=== PATIENT | female | born 1965 | race Caucasian/White ===

== ENCOUNTER 2018-12-08 09:55 | Emergency (ER) | payer OTHER ==
[~2018-12-08] VITALS: Ht 167.6 cm; Wt 142.9 kg
[~2018-12-08 09:55] MED LIST: ARTHRITIS PAIN650 MG PO
[2018-12-08] MEDS ORDERED: METFORMIN HCL500 MG PO (10:14)
[2018-12-08] MEDS ORDERED: IBUPROFEN200 M1 PO (10:15)
--- OUTSIDE RECORDS SUMMARY | 2018-12-08 11:10 | XMS ---
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 Care History Medical/Surgical 12/08/2018 [facility] - Patient is currently established with [facility]. If patient is seen in the ED during business hours. Please contact CHWs at [facility]. Care Recommendation: This patient has had 5 or more Emergency Department visits in the last 12 months.\T\nbsp; Patient requires education on the scope and purpose of the ED as an acute care provider not a Primary Care Provider and should not be utilized for chronic conditions.\T\nbsp; These are guidelines and the provider should exercise clinical judgment when providing care. E.D. VISIT COUNT (12 MO.) 1 [facility] TOTAL 1 NOTE: Visits indicate total known visits. ED/UCC VISIT TRACKING (12 MO.) 12/08/2018 09:[address] [facility] [place] TYPE: Emergency COMPLAINT: - VOMITING, NECK/BACK PAIN NON INJURY INPATIENT VISIT TRACKING (12 MO.) No inpatient visits to display in this time frame [id number]
[2018-12-08] MEDS ORDERED: HALOPERIDOL5 MG PO (14:21)
[2018-12-09] MEDS ORDERED: CLINDAMYCIN HC300 MG PO (07:45)
== END 2018-12-08 15:36 | disposition home or self-care (01) ==
LOC: ED 09:55
DX: R11.2 Nausea with vomiting, unspecified (principal); E11.9 Type 2 diabetes mellitus without complications; Z79.84 Long term (current) use of oral hypoglycemic drugs
CPT/HCPCS: 71045; 80053; 81001; 85025; 87502; 96361; 96374; 96375; 99283-25; J1200; J1630; J2765; J7030

== ENCOUNTER 2018-12-09 07:28 | Emergency (ER) | payer OTHER ==
[~2018-12-09] VITALS: Ht 167.6 cm; Wt 142.9 kg
[~2018-12-09 07:28] MED LIST changes: +HALOPERIDOL5 MG PO; +IBUPROFEN200 M1 PO; +METFORMIN HCL500 MG PO
--- OUTSIDE RECORDS SUMMARY | 2018-12-09 07:32 | XMS ---
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 Care History Medical/Surgical 12/08/2018 [facility] - Patient is currently established with [facility]. If patient is seen in the ED during business hours. Please contact CHWs at [facility]. Care Recommendation: This patient has had 5 [...] providing care. E.D. VISIT COUNT (12 MO.) 2 [facility] TOTAL 2 NOTE: Visits indicate total known visits. ED/UCC VISIT TRACKING (12 MO.) 12/09/2018 07:29 [facility] TYPE: Emergency COMPLAINT: - LEFT LEG PAIN, SWELLING, REDNESS NON INJURY 12/08/2018 09:55 [facility] TYPE: Emergency COMPLAINT: - VOMITING, NECK/BACK PAIN NON INJURY INPATIENT VISIT TRACKING (12 MO.) No inpatient visits to display in this time frame [email or web address]
[2018-12-09] MEDS ORDERED: CLINDAMYCIN HC300 MG PO (07:45)
== END 2018-12-09 08:30 | disposition home or self-care (01) ==
LOC: ED 07:28
DX: L03.116 Cellulitis of left lower limb (principal); E11.9 Type 2 diabetes mellitus without complications; Z88.1 Allergy status to other antibiotic agents; Z79.84 Long term (current) use of oral hypoglycemic drugs; Z79.899 Other long term (current) drug therapy
CPT/HCPCS: 96365; 99283-25; J3490

== ENCOUNTER 2018-12-13 09:09 | Emergency (ER) | payer OTHER ==
[~2018-12-13] VITALS: Ht 167.6 cm; Wt 142.9 kg
[~2018-12-13 09:09] MED LIST changes: +CLINDAMYCIN HC300 MG PO
--- OUTSIDE RECORDS SUMMARY | 2018-12-13 09:12 | XMS ---
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 Care History Medical/Surgical 12/08/2018 [facility] - Patient is currently established with [facility]. If patient is seen in the ED during business hours. Please contact CHWs at [facility]. Care Recommendation: This patient has had [...] providing care. E.D. VISIT COUNT (12 MO.) 3 [facility] TOTAL 3 NOTE: Visits indicate total known visits. ED/UCC VISIT TRACKING (12 MO.) 12/13/2018 09:10 [facility] TYPE: Emergency COMPLAINT: - NASUEA/LEFT LEG INFECTION 12/09/2018 07:29 [facility] TYPE: Emergency COMPLAINT: - LEFT LEG PAIN, SWELLING, REDNESS NON INJURY DIAGNOSES: - Type 2 diabetes mellitus without complications - Other intermediate (current) drug therapy - Erythematous condition, unspecified - Allergy status to other antibiotic agents status - snf (current) use of oral hypoglycemic drugs - Cellulitis of left lower limb 12/08/2018 09:[address] 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
[2018-12-13] MEDS ORDERED: CLINDAMYCIN HC150 MG PO (12:35)
[2018-12-13] MEDS ORDERED: ONDANSETRON ODT8 MG PO (12:37)
== END 2018-12-13 12:54 | disposition home or self-care (01) ==
LOC: ED 09:09
DX: L03.116 Cellulitis of left lower limb (principal); E11.9 Type 2 diabetes mellitus without complications; Z88.1 Allergy status to other antibiotic agents; Z79.84 Long term (current) use of oral hypoglycemic drugs
CPT/HCPCS: 80053; 85025; 93971; 96361; 96365; 96375; 99284-25; J2405; J7030

== ENCOUNTER 2018-12-19 13:47 | Emergency (ER) | payer OTHER ==
[~2018-12-19] VITALS: Ht 167.6 cm; Wt 138.8 kg
[~2018-12-19 13:47] MED LIST changes: +CLINDAMYCIN HC150 MG PO; +ONDANSETRON ODT8 MG PO
--- OUTSIDE RECORDS SUMMARY | 2018-12-19 13:50 | XMS ---
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 Care History Medical/Surgical 12/08/2018 [facility] - Patient is currently established with [facility]. If patient is seen in the ED during business hours. Please contact CHWs at [facility]. Care Recommendation: This patient has had 5 [...] providing care. E.D. VISIT COUNT (12 MO.) 4 [facility] TOTAL 4 NOTE: Visits indicate total known visits. ED/UCC VISIT TRACKING (12 MO.) 12/19/2018 13:47 [facility] TYPE: Emergency COMPLAINT: - L LEG SWELLING 12/13/2018 09:10 [facility] TYPE: Emergency COMPLAINT: - NASUEA/LEFT LEG INFECTION DIAGNOSES: - Nausea with vomiting, unspecified - Cellulitis of left lower limb - long-term (current) use of oral hypoglycemic drugs - Type 2 diabetes mellitus without complications - Allergy status to other antibiotic agents status 12/09/2018 07:29 [facility] TYPE: Emergency COMPLAINT: - LEFT LEG PAIN, SWELLING, REDNESS NON INJURY DIAGNOSES: - Type 2 diabetes mellitus without complications - 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
[2018-12-19] MEDS ORDERED: KEFLEX500 MG PO (15:59)
[2018-12-19] MEDS ORDERED: LASIX20 MG PO (16:00)
== END 2018-12-19 16:37 | disposition home or self-care (01) ==
LOC: ED 13:47
DX: L03.116 Cellulitis of left lower limb (principal); E11.9 Type 2 diabetes mellitus without complications; Z88.1 Allergy status to other antibiotic agents; Z79.899 Other long term (current) drug therapy
CPT/HCPCS: 80053; 85025; 93971; 99284-25; J0696

== ENCOUNTER 2021-05-16 13:34 | Emergency (ER) | payer MEDICARE, OTHER ==
[~2021-05-16] VITALS: Ht 167.6 cm; Wt 124.7 kg
[~2021-05-16 13:34] MED LIST changes: +KEFLEX500 MG PO; +LASIX20 MG PO
[2021-05-16] MEDS ORDERED: ZITHROMAX250 MG PO (15:56)
[2021-05-16] MEDS ORDERED: MELOXICAM7.5 MG PO (15:57)
[2021-05-16] MEDS ORDERED: CYCLOBENZAPRINE10 MG PO (15:57)
[2021-05-16] MEDS ORDERED: PROMETHAZINE C PO (17:03)
== END 2021-05-16 17:17 | disposition home or self-care (01) ==
LOC: ED 13:34
DX: J18.9 Pneumonia, unspecified organism (principal); M54.5 Low back pain; E11.9 Type 2 diabetes mellitus without complications; M19.011 Primary osteoarthritis, right shoulder; M19.012 Primary osteoarthritis, left shoulder; M17.0 Bilateral primary osteoarthritis of knee; Z88.1 Allergy status to other antibiotic agents; Z20.822 Contact with and (suspected) exposure to COVID-19
CPT/HCPCS: 71045; 72100; 81001; 96372; 99283-25; A9270; C9803; J0696; U0003

== ENCOUNTER 2024-06-12 07:05 | Day surgery (SDC) | payer MEDICARE, OTHER ==
[~2024-06-12] VITALS: Ht 167.6 cm; Wt 109.5 kg
[~2024-06-12 07:05] MED LIST changes: +BUPIVACAINE 0.75% IN DEXTROSE 2 ML AMP ONE; +CEFAZOLIN SODIUM 3 GM/30 ML SYR IV SCH; +CYCLOBENZAPRINE10 MG PO; +DEXAMETHASONE SOD PHOS 4 MG/ML VIAL ONE; +FAMOTIDINE 20 MG/ 2 ML VIAL ONE; +FLUVOXAMINE MA100 MG PO; +HYDROCODON-ACE1 EA10 PO; +IBLOOD GLUCOSE TEST STRIP 1 EA TEST VI PRN; +KETAMINE in NS 50 MG/5 ML SYR ONE; +KETOROLAC TROMETHAMINE 30 MG/ML VIAL ONE; +LACTATED RINGER'S 1,000 ML IV ONE; +LACTATED RINGER'S 1,000 ML IV SCH; +LIDOCAINE HCL 1% 5 ML SDV INJ ONE; +LIDOCAINE HCL 2% 5 ML SDV ONE; +MELOXICAM7.5 MG PO; +METOCLOPRAMIDE HCL 10 MG/2 ML SDV ONE; +MIDAZOLAM HCL 2 MG/2 ML VIAL ONE; +PROMETHAZINE C PO; +TRANEXAMIC ACID 2,000 MG in SODIUM CHLORIDE 0.9% 100 ML IV SCH; +ZITHROMAX250 MG PO; +fentaNYL citrate 100 MCG/2 ML VIAL ONE; +ondansetron HCL 4 MG/2 ML VIAL ONE; +propofoL 200 MG/20 ML VIAL ONE
[2024-06-12 07:34] VITALS: BP 152/78
[2024-06-12 07:37] VITALS: BP 152/78
[2024-06-12] MEDS ORDERED: OXYCODONE HCL5 MG PO (07:40)
[2024-06-12] MEDS ORDERED: NALOXONE HCL 0.4 MG SYR IV PRN (08:00)
[2024-06-12] MEDS ORDERED: METOCLOPRAMIDE HCL 10 MG/2 ML SDV IV PRN (08:00)
[2024-06-12] MEDS ORDERED: droPERidol 5 MG/2 ML VIAL IV PRN (08:00)
[2024-06-12] MEDS ORDERED: ondansetron HCL 4 MG/2 ML VIAL IV PRN (08:00)
[2024-06-12] MEDS ORDERED: IBLOOD GLUCOSE TEST STRIP 1 EA TEST VI PRN (08:00)
[2024-06-12] MEDS ORDERED: fentaNYL citrate 50 MCG/ML SDV IV PRN (08:00)
[2024-06-12] MEDS ORDERED: PROCHLORPERAZINE EDISYLATE 10 MG/2 ML VIAL IV PRN (08:00)
[2024-06-12] MEDS ORDERED: MORPHINE SULFATE 10 MG/ML VIAL IV PRN (08:00)
[2024-06-12] MEDS ORDERED: CloNIDine HCl/Pf 1,000 MCG/10 ML VIAL ONE (08:26)
[2024-06-12] MEDS ORDERED: BUPIVACAINE HCL 0.25% 30 ML SDV ONE (08:26)
[2024-06-12] MEDS ORDERED: Ropivacaine HCl 0.5% 30 ML VIAL ONE (08:50)
[2024-06-12] MEDS ORDERED: LIDOCAINE HCL 2% 5 ML SDV ONE (08:50)
[2024-06-12] MEDS ORDERED: SODIUM CHLORIDE 0.9% 20 ML IV ONE (08:50)
[2024-06-12] MEDS ORDERED: DEXAMETHASONE SOD PHOS 4 MG/ML VIAL ONE (08:50)
[2024-06-12] MEDS ORDERED: KETOROLAC TROMETHAMINE 30 MG/ML VIAL IV PRN (09:00)
[2024-06-12] MEDS ORDERED: OXYCODONE HCL 5 MG TAB PO PRN (09:00)
[2024-06-12] MEDS ORDERED: SEVOFLURANE 250 ML BTL INH ONE (09:14)
[2024-06-12] MEDS ORDERED: DICLOFENAC SODI75 MG PO (10:41)
[2024-06-12] MEDS ORDERED: CEFUROXIME250 MG PO (10:41)
[2024-06-12] MEDS ORDERED: ACETAMINOPHEN500 MG PO (10:42)
--- NOTE | 2024-06-12 10:59 | NUR ---
06/12/24 1059 Mercedes Miles PT TO PACU SLEEPY BUT AROUSABLE REPORTS PAIN 7-04/15 TYLENOL GIVEN. O2 VIA MASK FOGGING NOTED IN MASK
[2024-06-12] MEDS ORDERED: TRANEXAMIC ACID 2,000 MG in SODIUM CHLORIDE 0.9% 100 ML IV ONE (11:00)
[2024-06-12] MEDS ORDERED: ACETAMINOPHEN 1,000 MG/100 ML VIAL IV ONE (11:15)
[2024-06-12 11:54] VITALS: BP 131/58
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
--- NOTE | 2024-06-12 13:00 | NUR ---
patient transfers to wheelchair to go to the bathroom. patient is toe touch only and transfers with help from bed to wheelchair. patient voids 350ml of yellow urine. patient reports that her pain is 0/10, nausea is absent. PT informed that patient is ready to be evaluated
[2024-06-12 13:15] VITALS: BP 147/73
--- NOTE | 2024-06-12 13:40 | NUR ---
PATIENT AT THIS TIME HAS MET ALL OF HER DISCHARGE CRITERIA. SHE HAS EATEN/DRANK WITHOUT NAUSEA/VOMITING, GOTTEN UP TO VOID, VOIDED SUCCESSFULLY. PAIN IS VERY WELL UNDER CONTROL. SHE HAS PASSED PHYSICAL THERAPY. DISCHARGE INSTRUCTIONS WERE REVIEWED IN DETAIL AND ALL QUESTIONS WERE ANSWERED. PATIENT EXPRESSED UNDERSTANDING OF DISCHARGE INSTRUCTIONS. PATIENT'S BELONGINGS WERE GATHERED AND WAS DISCHARGED VIA WHEELCHAIR. HER BROTHER GENE PICKED UP PATIENT.
[2024-06-12] MEDS ORDERED: ACETAMINOPHEN 500 MG TAB PO SCH (15:00)
[2024-06-12] MEDS ORDERED: GABAPENTIN 300 MG CAP PO SCH (15:00)
[2024-06-12] MEDS ORDERED: CEFAZOLIN SODIUM 2 GM/20 ML SYR IV SCH (16:00)
[2024-06-12] MEDS ORDERED: SENNOSIDES 1 TAB PO SCH (21:00)
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
[2024-06-13] MEDS ORDERED: DICLOFENAC SOD 75 MG TABEC PO SCH (08:00)
[2024-06-13] MEDS ORDERED: cefuroxime axetiL 250 MG TAB PO SCH (09:00)
== END 2024-06-12 13:45 | disposition home or self-care (01) ==
LOC: DS 07:05
PROVIDERS: ATTEND Specialist
PROC: 0QSH04Z Reposition Left Tibia with Internal Fixation Device, Open Approach (ICD-10-PCS; principal; 2024-06-12 09:25)
DX: S82.142A Displaced bicondylar fracture of left tibia, initial encounter for closed fracture (principal); V09.9XXA Pedestrian injured in unspecified transport accident, initial encounter; E66.01 Morbid (severe) obesity due to excess calories; Z68.38 Body mass index [BMI] 38.0-38.9, adult; Z79.899 Other long term (current) drug therapy; Z88.1 Allergy status to other antibiotic agents
CPT/HCPCS: 01392; 64445; 64447; 73560; 97161; C1713; J0131; J0690; J0735; J1100; J1885; J2001; J2003; J2250; J2405; J2704; J2765; J2795; J3010; J3490; J7121